=== PATIENT | female | born 1965 | race Caucasian/White ===

== ENCOUNTER 2021-01-03 08:57 | Inpatient (IN) | payer OTHER ==
[~2021-01-03] VITALS: Ht 157.5 cm; Wt 57.9 kg
[2021-01-03 09:22] LABS: HEMOGLOBIN 11.6 gm/dl (12.3-15.3); RED BLOOD COUNT 3.81 M/UL (4.00-5.10); WHITE BLOOD COUNT 9.8 K/UL (4.5-11.0)
--- NOTE | 2021-01-04 05:23 | NUR ---
[id number] UPDATED PT SISTER VIA PHONE. ALL QUESTIONS ANSWERED.
[2021-01-04 05:51] LABS: WHITE BLOOD COUNT 9.9 K/UL (4.5-11.0)
[2021-01-04 05:52] LABS: RED BLOOD COUNT 3.27 M/UL (4.00-5.10)
[2021-01-04 07:11] LABS: HBSAG SCREEN Negative (Negative); HEP A AB, IGM Negative (Negative); HEP B CORE AB, IGM Negative (Negative); HEP C VIRUS AB <0.1 (0.0-0.9)
[2021-01-04 12:22] LABS: ACINETOBACTER BAUMANNII Not Detected (Negative); CANDIDA ALBICANS Not Detected (Negative); CANDIDA KRUSEI Not Detected (Negative); CANDIDA TROPICALIS Not Detected (Negative); ENTEROCOCCUS Not Detected (Negative); ESCHERICHIA COLI Not Detected (Negative); HAEMOPHILUS INFLUENZAE Not Detected (Negative); KLEBSIELLA OXYTOCA Not Detected (Negative); KLEBSIELLA PNEUMONIAE Not Detected (Negative); KPC-CARBAPENEM-RESISTANCE GENE Not Detected (Negative); PROTEUS Not Detected (Negative); PSEUDOMONAS AERUGINOSA Not Detected (Negative); SERRATIA MARCESANS Not Detected (Negative); STAPHYLOCOCCUS AUREUS Not Detected (Negative); STREP AGALACTIAE (GROUP B) Not Detected (Negative); STREP PYOGENES (GROUP A) Not Detected (Negative); STREPTOCOCCUS Not Detected (Negative); vanA/B (VANCOMYCIN RESIST GENE Not Detected (Negative)
[2021-01-04 15:01] LABS: STAPHYLOCOCCUS DETECTED (Negative); mecA (METHICILLIN RESIST GENE DETECTED (Negative)
[2021-01-04 15:03] LABS: BUN/CREATININE RATIO 6 (0-10)
[2021-01-05 05:28] LABS: HEMOGLOBIN 10.9 gm/dl (12.3-15.3); RED BLOOD COUNT 3.55 M/UL (4.00-5.10); WHITE BLOOD COUNT 10.6 K/UL (4.5-11.0)
[2021-01-05 08:59] LABS: ADENOVIRUS F 40/41 Not Detected (Negative); ASTROVIRUS Not Detected (Negative); CAMPYLOBACTER Not Detected (Negative); CRYPTOSPORIDIUM Not Detected (Negative); E.COLI 0157 Not Detected (Negative); ENTAMOEBA HISTOLYTICA Not Detected (Negative); ENTEROPATHOGENIC E.COLI (EPEC) Not Detected (Negative); ENTEROTOXIGENIC E.COLI (ETEC) Not Detected (Negative); GIARDIA LAMBLIA Not Detected (Negative); NOROVIRUS GI/GII Not Detected (Negative); PLESIOMONAS SHIGELLOIDES Not Detected (Negative); ROTOVIRUS A Not Detected (Negative); SALMONELLA Not Detected (Negative); SAPOVIRUS Not Detected (Negative); SHIG/ENTEROINVAS.ECOLI (EIEC) Not Detected (Negative); SHIGA-LIK TOX.PRO.E.COLI (STEC Not Detected (Negative); VIBRIO Not Detected (Negative); VIBRIO CHOLERAE Not Detected (Negative); YERSINIA ENTEROCOLITICA Not Detected (Negative)
[2021-01-05 11:23] LABS: CLOSTRIDIUM DIFFICILE TOX A/B DETECTED (Negative); ENTEROAGGREGATIVE E.COLI (EAEC DETECTED (Negative)
[2021-01-06 04:20] LABS: HEMOGLOBIN 10.3 gm/dl (12.3-15.3); RED BLOOD COUNT 3.42 M/UL (4.00-5.10); WHITE BLOOD COUNT 11.6 K/UL (4.5-11.0)
[2021-01-07 03:03] LABS: HEMOGLOBIN 10.5 gm/dl (12.3-15.3); RED BLOOD COUNT 3.46 M/UL (4.00-5.10); WHITE BLOOD COUNT 11.7 K/UL (4.5-11.0)
--- NOTE | 2021-01-08 05:57 | NUR ---
PATIENTS BG [address] WHITMAN OF TRENDING LOW BG. ORDERS FOR D50 PUSH.
[2021-01-09 03:19] LABS: HEMOGLOBIN 9.7 gm/dl (12.3-15.3); RED BLOOD COUNT 3.21 M/UL (4.00-5.10); WHITE BLOOD COUNT 9.4 K/UL (4.5-11.0)
--- NOTE | 2021-01-09 10:14 | NUR ---
PT TRANSFERED TO DIALYSIS VIA TECH AND OTHER PCU NURSE
--- NOTE | 2021-01-09 20:00 | NUR ---
PT UPSET AND COMPLAINING. STATES, " IM GETTING OUT OF HERE, I WANT TO WALK AROUND AND GO SMOKE A CIGERETTE." INSTRUCTIONS GIVEN TO PATIENT ABOUT SMOKING POLICY AND RULES AND HEALTH DIAGNOSIS. STATES, " I DONT CARE I WANT TO GO OUTSIDE." REASSURANCE PROVIDED TO PATIENT AND ACTIVE LISTENING.
--- NOTE | 2021-01-10 05:24 | NUR ---
PATIENTS BLOOD GLUCOSE IS 409. NOTIFIED DR GARRIDO. PATIENT IS NON COMPLIANT WITH DIET RESTRICTIONS.
--- NOTE | 2021-01-10 23:00 | NUR ---
NOTIFIED [employer]LECTIONS LIBRARIAN FOR THE NEED OF CONTINUOUS PULSE OX CORD. SPECIAL COLLECTIONS LIBRARIAN STATED THAT WE WERE CURRENTLY OUT OF PULSE OX CORDS.
--- NOTE | 2021-01-12 19:50 | NUR ---
AT APPROXIMATELY 1940 CODE BLUE WAS CALLED OVERHEAD FOR PTS ROOM. NUMEROUS STAFF RESPONDED WITH CODE CART AND PT WAS OBSERVED STANDING UP HITTING BUTTONS BEHIND THE BED. PT STATED SHE WAS TRYING TO GET THE BEEPING TO STOP. PT HAD BOTH BED AND STRIP ALARM ACTIVE BUT NEITHER WERE ALARMING. CODE BLUE WAS CANCELED. PT WAS EDUCATED ON USE OF CALL LIGHT TO OBTAIN STAFF HELP. PT VERBALIZED UNDERSTANDING AND STATED SHE WOULD NOT PRESS CODE BLUE AGAIN. I VERIFIED THAT THE BED AND STRIP ALARMS WERE ACTIVE AND WORKING. THEY DID ALARM WHEN I HAD PATITENT GET UP AGAIN TO TEST THEM. I ASKED [facility] OFFICE COORDINATOR FOR PERMISSION TO MOVE PT TO ROOM 4119 TO BE CLOSER TO THE RN STATION TO BE ABLE TO KEEP A CLOSER EYE ON HER FOR HER SAFETY. WILL MOVE [place].
--- NOTE | 2021-01-12 20:26 | NUR ---
AT 2014 TECH JAMIN AND Tiana MOVED PT VIA WHEELCHAIR INTO ROOM 4119 TO BE CLOSER TO THE RN STATION. WE MOVED HER INTO A NEW BED WITH A NEW STRIP ALARM AND VERIFIED THEY WORKED. SEIZURE PRECAUTIONS WERE ALSO PUT IN PLACE IN THE NEW ROOM. PATIENT WAS REORIENTED TO THE ROOM AND CALL LIGHT AND VERBALIZED UNDERSTANDING.
[2021-01-13 06:14] LABS: HEMOGLOBIN 8.3 gm/dl (12.3-15.3); RED BLOOD COUNT 2.71 M/UL (4.00-5.10); WHITE BLOOD COUNT 17.5 K/UL (4.5-11.0)
[2021-01-15 08:14] LABS: HEMOGLOBIN 7.2 gm/dl (12.3-15.3)
[2021-01-15 08:16] LABS: RED BLOOD COUNT 2.35 M/UL (4.00-5.10); WHITE BLOOD COUNT 10.1 K/UL (4.5-11.0)
[2021-01-16 07:54] LABS: HEMOGLOBIN 7.4 gm/dl (12.3-15.3); RED BLOOD COUNT 2.51 M/UL (4.00-5.10); WHITE BLOOD COUNT 8.9 K/UL (4.5-11.0)
[2021-01-16] MEDS ORDERED: AMLODIPINE BESYL5 MG PO (18:23)
[2021-01-16] MEDS ORDERED: PROTONIX 40 MG40 M1 PO (18:23)
[2021-01-17 07:17] LABS: HEMOGLOBIN 8.2 gm/dl (12.3-15.3); RED BLOOD COUNT 2.64 M/UL (4.00-5.10)
[2021-01-17 07:18] LABS: WHITE BLOOD COUNT 11.3 K/UL (4.5-11.0)
[2021-01-18 06:19] LABS: HEMOGLOBIN 7.9 gm/dl (12.3-15.3); RED BLOOD COUNT 2.58 M/UL (4.00-5.10); WHITE BLOOD COUNT 8.9 K/UL (4.5-11.0)
[2021-01-18] MEDS ORDERED: PROTONIX 40 MG40 M1 PO (15:15)
[2021-01-18] MEDS ORDERED: NORVASC10 MG PO (15:15)
[2021-01-18] MEDS ORDERED: CHLORASEPTIC20 ML MT (15:15)
[2021-01-18] MEDS ORDERED: LOPRESSOR 50 MG50 MG PO ×2 (15:15→15:28)
[2021-01-18] MEDS ORDERED: HYDRALAZINE HCL50 MG PO (15:15)
== END 2021-01-18 18:00 | disposition home or self-care (01) | DRG 673 ==
LOC: ER1 08:57 → CDU 14:50 → MED SURG 4 14:50 → PROG CARE 14:50 → CCU 14:50 → PROG CARE 01-06 17:17 → MED SURG 4 01-10 20:14
PROVIDERS: Emergency Medicine; Internal Medicine; Internal Medicine Nephrology; Physician Assistant; Urology; ADMIT Internal Medicine
PROC: 02HV33Z Insertion of Infusion Device into Superior Vena Cava, Percutaneous Approach (ICD-10-PCS; principal; 2021-01-03)
PROC: 5A1D70Z Performance of Urinary Filtration, Intermittent, Less than 6 Hours Per Day (ICD-10-PCS; 2021-01-03)
PROC: 0BH17EZ Insertion of Endotracheal Airway into Trachea, Via Natural or Artificial Opening (ICD-10-PCS; 2021-01-03)
PROC: 5A1945Z Respiratory Ventilation, 24-96 Consecutive Hours (ICD-10-PCS; 2021-01-03)
PROC: 05HM33Z Insertion of Infusion Device into Right Internal Jugular Vein, Percutaneous Approach (ICD-10-PCS; 2021-01-03)
PROC: B24BZZ4 Ultrasonography of Heart with Aorta, Transesophageal (ICD-10-PCS; 2021-01-04)
PROC: 5A1D70Z Performance of Urinary Filtration, Intermittent, Less than 6 Hours Per Day (ICD-10-PCS; 2021-01-04)
PROC: 8E0ZXY6 Isolation (ICD-10-PCS; 2021-01-05)
PROC: 5A1D70Z Performance of Urinary Filtration, Intermittent, Less than 6 Hours Per Day (ICD-10-PCS; 2021-01-09)
PROC: 0JH63XZ Insertion of Tunneled Vascular Access Device into Chest Subcutaneous Tissue and Fascia, Percutaneous Approach (ICD-10-PCS; 2021-01-11)
PROC: 02HV33Z Insertion of Infusion Device into Superior Vena Cava, Percutaneous Approach (ICD-10-PCS; 2021-01-11)
PROC: B5181ZA Fluoroscopy of Superior Vena Cava using Low Osmolar Contrast, Guidance (ICD-10-PCS; 2021-01-11)
PROC: 5A1D70Z Performance of Urinary Filtration, Intermittent, Less than 6 Hours Per Day (ICD-10-PCS; 2021-01-11)
PROC: 5A1D70Z Performance of Urinary Filtration, Intermittent, Less than 6 Hours Per Day (ICD-10-PCS; 2021-01-13)
DX: N17.9 Acute kidney failure, unspecified (principal); J96.01 Acute respiratory failure with hypoxia; G93.41 Metabolic encephalopathy; I13.2 Hypertensive heart and chronic kidney disease with heart failure and with stage 5 chronic kidney disease, or end stage renal disease; E87.4 Mixed disorder of acid-base balance; G40.802 Other epilepsy, not intractable, without status epilepticus; G93.49 Other encephalopathy; J81.1 Chronic pulmonary edema; E87.1 Hypo-osmolality and hyponatremia; J98.11 Atelectasis; A04.72 Enterocolitis due to Clostridium difficile, not specified as recurrent; I16.1 Hypertensive emergency; Z20.822 Contact with and (suspected) exposure to COVID-19; N18.6 End stage renal disease; B96.20 Unspecified Escherichia coli [E. coli] as the cause of diseases classified elsewhere; D35.01 Benign neoplasm of right adrenal gland; F17.210 Nicotine dependence, cigarettes, uncomplicated; J45.909 Unspecified asthma, uncomplicated; E87.70 Fluid overload, unspecified; I16.0 Hypertensive urgency; R73.9 Hyperglycemia, unspecified; R68.0 Hypothermia, not associated with low environmental temperature; E83.52 Hypercalcemia; D63.1 Anemia in chronic kidney disease; N28.1 Cyst of kidney, acquired; E87.6 Hypokalemia; E83.51 Hypocalcemia; I50.9 Heart failure, unspecified; Z91.15 Patient's noncompliance with renal dialysis; Z87.11 Personal history of peptic ulcer disease; Z83.3 Family history of diabetes mellitus; Z82.49 Family history of ischemic heart disease and other diseases of the circulatory system; Z90.49 Acquired absence of other specified parts of digestive tract; Z84.1 Family history of disorders of kidney and ureter; Z99.2 Dependence on renal dialysis
CPT/HCPCS: 31500; 36415; 36600; 70450; 70551; 71045; 71250; 77001; 80048; 80053; 80061; 80074; 80202; 80307; 81001; 82150; 82533; 82550; 82553; 82728; 82803; 82962; 83036; 83540; 83550; 83605; 83690; 83735; 83880; 84132; 84439; 84443; 84484; 85007; 85018; 85025; 85027; 85610; 85730; 87040; 87077; 87150; 87186; 87324; 87449; 87507; 90937; 92526; 92610; 93005; 94002; 94003; 94760; 95819; 97110-GP-CQ; 97116; 97116-GP-CQ; 97162; 97530; 97530-GP-CQ; 99285; C1750; C1752; C1769; G0257; J0330; J0610; J0696; J1642; J2001; J2060; J2270; J2370; J2405; J2543; J2550; J2704; J2710; J3010; J3370; J3480; J7030; J7040; J7070; J7120; P9047; U0002